=== PATIENT | female | born 1980 | race American Indian/Alaskan Native ===

== ENCOUNTER 2018-05-20 17:33 | Emergency (ER) | payer OTHER ==
[2018-05-20 18:15] VITALS: BP 143/89
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
[2018-05-20] MEDS ORDERED: NORCO 5/325 PO ONE (20:17)
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
== END 2018-05-20 23:50 | disposition home or self-care (01) ==
LOC: ED 17:33
DX: S89.92XA Unspecified injury of left lower leg, initial encounter (principal); S89.91XA Unspecified injury of right lower leg, initial encounter; R51 Headache; V49.49XA Driver injured in collision with other motor vehicles in traffic accident, initial encounter; Y92.488 Other paved roadways as the place of occurrence of the external cause; Y93.89 Activity, other specified; Y99.8 Other external cause status
CPT/HCPCS: 70450